=== PATIENT | female | born 1950 | race American Indian/Alaskan Native ===

== ENCOUNTER 2021-01-05 09:01 | Outpatient (CLI) | payer MEDICARE ==
--- NOTE | 2021-01-05 11:19 | Mammography Report ---
BILATERAL DIGITAL DIAGNOSTIC MAMMOGRAM WITH CAD WITH TOMOSYNTHESIS, 01/05/2021 LEFT LIMITED BREAST ULTRASOUND CLINICAL INFORMATION / INDICATION: Left breast pain TECHNIQUE: Digital bilateral mammographic imaging was performed. Limited ultrasound was performed. Th is examination was interpreted with the benefit of Computer-Aided Detection (CAD) analysis. COMPARISON: Prior mammogram 03/05/2020 FINDINGS: Breast Density: The breasts are almost entirely fatty. MAMMOGRAPHIC FINDINGS: No dominant mass, suspicious calcifications, or architectural distortion in ei ther breast. A biopsy clip is present in the 12:00 location of the right breast anterior depth. Benig n calcification is present in the upper inner quadrant of the left breast. Overall, no interval atkinson e and no mammographic correlate for the complaint of left breast pain. ULTRASOUND FINDINGS: Targeted ultrasound evaluation was performed of the area of interest. Sonograp hic evaluation of the left breast did not reveal any abnormality in the area of pain noted to be in t he upper outer quadrant and axilla. A normal lymph node is present in the axilla but there is no susp icious mass, cyst, or area of shadowing noted. IMPRESSION: No mammographic or sonographic evidence of malignancy. No mammographic or sonographic cor relate for complaint of left breast pain. Clinical correlation is recommended. Follow up recommendation: Routine yearly BI-RADS Category 2: Benign. A "normal" or negative report should not discourage follow up or biopsy of a clinically significant f inding. A written summary of these findings will be mailed to the patient. The patient will be entered into a mammography reporting system which will generate a reminder letter for the patient's next appointmen t at the appropriate interval. According to the [employer], yearly mammograms are recommended starting at age 40 and continuing as long as a woman is in good health. Breast MRI is recommended for women with an abbie roximately 20-25% or greater lifetime risk of breast cancer, including women with a strong family his tory of breast or ovarian cancer and women who have been treated for Hodgkin's disease. Signer Name: Marilin Shay MD Signed: 01/05/2021 11:15 AM Workstation Name: [id number]
== END 2021-01-05 09:02 | disposition home or self-care (01) ==
LOC: SPVWC 09:01
PROVIDERS: ATTEND Surgery
DX: R92.1 Mammographic calcification found on diagnostic imaging of breast (principal)
CPT/HCPCS: 76642; 77066; G0279